=== PATIENT | female | born 1955 | race Caucasian/White ===

== ENCOUNTER → 2016-11-26 | Outpatient (CLI) | payer MEDICAID | LOC: FIMAGING 12:22 | PROVIDERS: ATTEND Family Medicine | DX: Z12.31 Encounter for screening mammogram for malignant neoplasm of breast (principal) | CPT/HCPCS: G0202 ==

== ENCOUNTER → 2018-04-14 | Outpatient (CLI) | payer MEDICAID | LOC: FIMAGING 14:50 | PROVIDERS: ATTEND Family Medicine | DX: N64.4 Mastodynia (principal) ==